=== PATIENT | female | born 1945 | race Caucasian/White ===

== ENCOUNTER 2022-05-05 12:51 | Emergency (ER) | payer MEDICARE ==
[2022-05-05] MEDS ORDERED: Ondansetron PF 4 MG/2 ML Vial ONE ×2 (13:36→15:57)
[2022-05-05] MEDS ORDERED: Morphine 4 MG/ML VIAL ONE ×2 (13:36→15:57)
== END 2022-05-05 16:38 | disposition home or self-care (01) ==
LOC: CSHERS 12:51
DX: S42.212A Unspecified displaced fracture of surgical neck of left humerus, initial encounter for closed fracture (principal); S42.302A Unspecified fracture of shaft of humerus, left arm, initial encounter for closed fracture; E78.5 Hyperlipidemia, unspecified; E03.9 Hypothyroidism, unspecified; E11.9 Type 2 diabetes mellitus without complications; W19.XXXA Unspecified fall, initial encounter
CPT/HCPCS: 72125; 96374; 96375; 96376; J2270; J2405